=== PATIENT | male | born 1945 | race Caucasian/White ===

== ENCOUNTER 2019-04-29 15:35 | Emergency (ER) | payer MEDICARE, OTHER ==
[~2019-04-29] VITALS: Ht 175.3 cm; Wt 90.0 kg
[2019-04-29 15:38] VITALS: BP 119/98
== END 2019-04-29 16:45 | disposition left against medical advice (07) ==
LOC: ER 15:35
DX: R55 Syncope and collapse (principal); Z53.21 Procedure and treatment not carried out due to patient leaving prior to being seen by health care provider